=== PATIENT | male | born 1980 | race African-American/Black ===

== ENCOUNTER 2021-11-26 18:59 | Emergency (ER) | payer SELFPAY ==
[2021-11-26] MEDS ORDERED: TETRACAINE HCL 0.5% 4ML OPTH ONE (20:33)
[2021-11-26] MEDS ORDERED: IBUPROFEN 400 MG TAB ONE (20:33)
[2021-11-26] MEDS ORDERED: FLUORESCEIN SODIUM 1 MG/WRAP ONE (21:22)
--- NOTE | 2021-11-26 22:10 | ER ---
Nurse's Notes [facility] Name: Harshad Thorpe Age: 40 yrs Sex: Male : 1980 Arrival Date: 11/26/2021 Time: 19:06 Bed 15 Private MD: Diagnosis: Headache;Ocular pain, right eye;Iritis Presentation: 11/26 19:09 Chief complaint: Patient states: headache. Coronavirus screen: Vaccine status: Patient mb8 reports being unvaccinated. Ebola Screen: Patient negative for fever greater than or equal to 101.5 degrees Fahrenheit, and additional compatible Ebola Virus Disease symptoms Patient denies exposure to infectious person. Patient denies travel to an Ebola-affected area in the 21 days before illness onset. No symptoms or risks identified at this time. Initial Sepsis Screen: Does the patient meet any 2 criteria? No. Patient's initial sepsis screen is negative. Initial Sepsis Screen: Does the patient have a suspected source of infection? No. Patient's initial sepsis screen is negative. Risk Assessment: Do you want to hurt yourself or someone else? Patient reports no desire to harm self or others. 19:09 Method Of Arrival: EMS [facility] 19:09 Acuity: MARIMAR 3 mb8 Triage Assessment: 19:11 General: Appears in no apparent distress. comfortable, Behavior is calm, cooperative, mb8 appropriate for age, Reports. Pain: Complains of pain in Head Pain currently is 10 out of 10 on a pain scale. at worst was 10 out of 10 on a pain scale. Historical: - Allergies: 19:11 No Known Allergies; mb8 - Immunization history:: Adult Immunizations. - Social history:: Smoking status: Patient reports the use of cigarette tobacco products. Screenin:11 Abuse screen: Denies threats or abuse. Nutritional screening: No deficits noted. ja4 Tuberculosis screening: No symptoms or risk factors identified. Fall Risk None identified. Assessment: 19:09 General: Appears in no apparent distress. Behavior is calm, cooperative, appropriate ja4 for age. 19:11 Pain: Complains of pain in face and right eye Pain currently is 10 out of 10 on a pain ja4 scale. Quality of pain is described as aching, Pain began Is. Neuro: No deficits noted. Vital Signs: 19:09 BP 136 / 63; Pulse 72; Resp 18; Temp 100.4(O); Pulse Ox 100% on R/A; mb8 11/27 00:26 BP 142 / 68; Pulse 72; Resp 16; Pulse Ox 99% on R/A; ll3 Visual Acuity: 11/26 20:29 Left Eye Visual acuity 20/20, Pupil size 3 mm, Normal, React To Light, Reactive To ja4 Accomodation; Right Eye Visual acuity 20/20, Pupil size 3 mm, Normal, React To Light, Reactive To Accomodation; Both Eyes Visual acuity 20/20; Without Lenses; [place] Coma Score: 19:11 Eye Response: spontaneous(4). Verbal Response: oriented(5). Motor Response: obeys ja4 commands(6). Total: 15. ED Course: 19:06 Patient arrived in ED. ds4 19:08 Myron Buchanan, RN is Primary Nurse. ja4 19:11 Triage completed. mb8 19:11 Bed in low position. Call light in reach. ja4 19:11 No provider procedures requiring assistance completed. ja4 19:12 Arm band placed on right wrist. 8 19:42 Tito Mabry MD is Attending Physician. kdr 22:00 COVID-19 SARS RT PCR (Document "Date of Onset" if Symptomatic) Sent. ja4 11/27 00:26 Patient did not have IV access during this emergency room visit. ll3 Administered Medications: 11/26 20:29 Drug: Ibuprofen 800 mg Route: PO; ja4 20:50 Drug: Tetracaine Solution (0.5 %) 4 drops Route: Topical; Site: affected area; ja4 Medication: 19:11 VIS not applicable for this client. ja4 Outcome: 22:10 Discharge ordered by . kdr 11/27 00:26 Discharged to home ambulatory. ll3 Condition: stable Discharge instructions given to patient, Instructed on discharge instructions, follow up and referral plans. medication usage, Demonstrated understanding of instructions, follow-up care, medications, Prescriptions given X 1. 00:27 Patient left the ED. ll3 Signatures: Tito Mabry MD MD [facility] [place] ds4 David Murrieta RN RN 3 Myron Buchanan RN RN 4 Holland Guzman RN RN 8
--- NOTE | 2021-11-26 22:10 | EDPHYS ---
Physician Documentation [facility] Name: Harshad Thorpe Age: 40 yrs Sex: Male : 1980 Arrival Date: 11/26/2021 Time: 19:06 Bed 15 Private MD: ED Physician Tito Mabry HPI: 11/26 20:24 This 40 yrs old Black Male presents to ER via EMS with complaints of Headache, right kdr eye pain. 20:24 Patient states that he awoke this morning with pain in his right and headache. He has kdr not had pain like this before. States that his vision is blurry in his right eye and that he is seeing dots. Patient is currently in rehab for crack cocaine abuse. He claims to have been clean for about 2 months he has no other complaints. No nausea vomiting diarrhea.. Onset: The symptoms/episode began/occurred suddenly, this morning. Severity of symptoms: At their worst the symptoms were mild in the emergency department the symptoms are unchanged. The patient has not experienced similar symptoms in the past. The patient has not recently seen a physician. Historical: - Allergies: 19:11 No Known Allergies; mb8 - Immunization history:: Adult Immunizations. - Social history:: Smoking status: Patient reports the use of cigarette tobacco products. ROS: 20:24 Constitutional: Negative for fever, chills, and weight loss, ENT: Negative for injury, kdr pain, and discharge, Neck: Negative for injury, pain, and swelling, Cardiovascular: Negative for chest pain, palpitations, and edema, Respiratory: Negative for shortness of breath, cough, wheezing, and pleuritic chest pain, Abdomen/GI: Negative for abdominal pain, nausea, vomiting, diarrhea, and constipation, Back: Negative for injury and pain, : Negative for injury, bleeding, discharge, and swelling, MS/Extremity: Negative for injury and deformity, Skin: Negative for injury, rash, and discoloration, Psych: Negative for depression, anxiety, suicide ideation, homicidal ideation, and hallucinations, Allergy/Immunology: Negative for hives, rash, and allergies, Endocrine: Negative for neck swelling, polydipsia, polyuria, polyphagia, and marked weight changes, Hematologic/Lymphatic: Negative for swollen nodes, abnormal bleeding, and unusual bruising. 20:24 Eyes: Positive for blurry vision, pain, photophobia, Negative for foreign body sensation, matting, redness, sunken appearance, tearing, vision loss. 20:24 Neuro: Positive for headache. Exam: 20:31 Constitutional: This is a well developed, well nourished patient who is awake, alert, kdr and in no acute distress. Head/Face: Normocephalic, atraumatic. Neck: Trachea midline, no thyromegaly or masses palpated, and no cervical lymphadenopathy. Supple, full range of motion without nuchal rigidity, or vertebral point tenderness. No Meningismus. Chest/axilla: Normal chest wall appearance and motion. Nontender with no deformity. No lesions are appreciated. Cardiovascular: Regular rate and rhythm with a normal S1 and S2. No gallops, murmurs, or rubs. Normal PMI, no JVD. No pulse deficits. Respiratory: Lungs have equal breath sounds bilaterally, clear to auscultation and percussion. No rales, rhonchi or wheezes noted. No increased work of breathing, no retractions or nasal flaring. Abdomen/GI: Soft, non-tender, with normal bowel sounds. No distension or tympany. No guarding or rebound. No evidence of tenderness throughout. Back: No spinal tenderness. No costovertebral tenderness. Full range of motion. Skin: Warm, dry with normal turgor. Normal color with no rashes, no lesions, and no evidence of cellulitis. MS/ Extremity: Pulses equal, no cyanosis. Neurovascular intact. Full, normal range of motion. Neuro: Awake and alert, GCS 15, oriented to person, place, time, and situation. Cranial nerves II-XII grossly intact. Motor strength 5/5 in all extremities. Sensory grossly intact. Cerebellar exam normal. Normal gait. Psych: Awake, alert, with orientation to person, place and time. Behavior, mood, and affect are within normal limits. Vital Signs: 19:09 BP 136 / 63; Pulse 72; Resp 18; Temp 100.4(O); Pulse Ox 100% on R/A; mb8 11/27 00:26 BP 142 / 68; Pulse 72; Resp 16; Pulse Ox 99% on R/A; ll3 [place] Coma Score: 11/26 19:11 Eye Response: spontaneous(4). Verbal Response: oriented(5). Motor Response: obeys ja4 commands(6). Total: 15. Visual Acuity: 20:29 Left Eye Visual acuity 20/20, Pupil size 3 mm, Normal, React To Light, Reactive To ja4 Accomodation; Right Eye Visual acuity 20/20, Pupil size 3 mm, Normal, React To Light, Reactive To Accomodation; Both Eyes Visual acuity 20/20; Without Lenses; MDM: 22:10 Patient medically screened. kdr 23:21 Data reviewed: vital signs, nurses notes. Counseling: I had a detailed discussion with kdr the patient and/or guardian regarding: the historical points, exam findings, and any diagnostic results supporting the discharge/admit diagnosis, the need for outpatient follow up. ED course: Placed call to Dr. Dennis eli of Dr. Flores. Neither one of them returned my call. Patient was feeling much better with the interventions given. His visual acuity was normal. He had consensual photophobia. He is otherwise stable and not in any acute distress. Discussed with him the need for prompt follow-up. He is to return to the ED if he is unable to see an taste tester and if his pain persist or worsens... 23:43 ED course: Attempted to consult [facility] ophthalmology consult. kdr Presently no one was available.. 23:58 ED course: Numerous attempts to consult ophthalmology at [facility], could not kdr obtain an ophthalmology consult. Patient be discharged on medications and given ophthalmology follow-up here locally.. 11/27 00:02 ED course: Since we were unable to find ophthalmology to consult and pain resolved with kdr medications given, will d/c with follow-up and ibuprofen. 11/26 21:10 Order name: COVID-19 SARS RT PCR (Document "Date of Onset" if Symptomatic); Complete kdr Time: :11/26 20: Order name: Visual Acuity; Complete Time: 20:29 kdr Administered Medications: 11/26 20:29 Drug: Ibuprofen 800 mg Route: PO; ja4 20:50 Drug: Tetracaine Solution (0.5 %) 4 drops Route: Topical; Site: affected area; ja4 Disposition Summary: 11/26/21 22:10 Discharge Ordered Location: Home kdr Problem: new kdr Symptoms: have improved kdr Condition: Stable kdr Diagnosis - Headache kdr - Ocular pain, right eye kdr - Iritis kdr Followup: kdr - With: Private Physician - When: 2 - 3 days - Reason: If symptoms return, Further diagnostic work-up, Recheck today's complaints, Continuance of care, Re-evaluation by your physician Discharge Instructions: - Discharge Summary Sheet kdr - General Headache Without Cause kdr Forms: - Medication Reconciliation Form kdr - Thank You Letter kdr Prescriptions: - Ibuprofen 600 mg Oral Tablet - take 1 tablet by ORAL route every 6 hours As needed take with food; 30 tablet; kdr Refills: 0, Product Selection Permitted Signatures: Dispatcher [employer] EDTito Aguilar MD MD kdr Myron Buchanan RN RN ja4 Holland Guzman RN RN mb8
[2021-11-27 03:43] VITALS: TEMP 100.4
[2021-11-27 03:45] VITALS: BP 142/68; O2SAT 99
== END 2021-11-27 00:27 | disposition home or self-care (01) ==
LOC: ER 18:59
DX: R51.9 Headache, unspecified (principal); H57.11 Ocular pain, right eye; H20.9 Unspecified iridocyclitis; Z20.822 Contact with and (suspected) exposure to COVID-19; Z72.0 Tobacco use
CPT/HCPCS: 99284; U0003